=== PATIENT | female | born 1980 | race African-American/Black ===

== ENCOUNTER 2021-09-29 00:06 | Emergency (ER) | payer OTHER, SELFPAY ==
[2021-09-29] MEDS ORDERED: Acetaminophen 500 MG TAB ONE (00:48)
== END 2021-09-29 02:22 | disposition home or self-care (01) ==
LOC: ERS 00:06
DX: O99.891 Other specified diseases and conditions complicating pregnancy (principal); M62.838 Other muscle spasm; M54.2 Cervicalgia; O99.331 Smoking (tobacco) complicating pregnancy, first trimester; F17.210 Nicotine dependence, cigarettes, uncomplicated; Z3A.08 8 weeks gestation of pregnancy; V49.9XXA Car occupant (driver) (passenger) injured in unspecified traffic accident, initial encounter
CPT/HCPCS: 72125